=== PATIENT | female | born 1995 | race Caucasian/White ===

== ENCOUNTER 2016-12-30 16:39 | Emergency (ER) | payer MEDICAID, OTHER ==
[~2016-12-30 16:39] MED LIST: Z.0.NO CURRENT MEDS
[2016-12-30 16:47] VITALS: BP 137/65; PULSE 115; RESP 20; TEMP 98.5; O2SAT 98
[2016-12-30 17:15] LABS: BILIRUBIN, URINE NEG (NEG); BLOOD, URINE NEG (NEG); GLUCOSE,URINE NEG (NEG); KETONE, URINE NEG (NEG); NITRITE,URINE NEG (NEG); URINE LEUKOCYTE ESTERASE NEG (NEG)
--- NOTE | 2016-12-30 17:15 | PD ---
HPI Chief Complaint: Related Problem Time Seen by Provider: 17:14 Travel History International Travel<30 days: No Contact w/Intl Traveler<30days: No Traveled to known affect area: No History of Present Illness HPI 21-year-old female patient who is 7 weeks by dates, presents to the ER today for 3 days history of spotting, intermittent mild pelvic cramping, and is concerned because of the spotting. She states that she is barely having any bleeding today but used 3 pads yesterday. She denies any fevers, vomiting, or any other symptoms. Modifying Factors: None Associated Signs & Symptoms: and vaginal spotting, pelvic cramping Risk Factors: None PFSH Past Medical History ?: LMP: OCTOBER : 0 Para: 0 Social History Alcohol Use: Yes (OCC) Tobacco Use: Yes Substance Use: No (DENIES) Allergies-Medications (Allergen,Severity, Reaction): Coded Allergies: No Known Allergies (Verified , 12/30/16) Reported Meds & Prescriptions Reported Meds & Active Scripts Active No Active Prescriptions or Reported Medications Review of Systems Except as stated in HPI: all other systems reviewed are Neg Physical Exam Narrative GENERAL: Well-developed young white female patient currently in mild distress. Awake and oriented 3. SKIN: Focused skin assessment warm/dry. HEAD: Atraumatic. Normocephalic. EYES: Pupils equal and round. No scleral icterus. No injection or drainage. ENT: No nasal bleeding or discharge. Mucous membranes pink and moist. NECK: Trachea midline. No JVD. CARDIOVASCULAR: Regular rate and rhythm. No murmur appreciated. RESPIRATORY: No accessory muscle use. Clear to auscultation. Breath sounds equal bilaterally. GASTROINTESTINAL: Abdomen soft, non-tender, nondistended. Hepatic and splenic margins not palpable. GENITOURINARY: Normal external genitalia without lesions or erythema. Vaginal vault without blood or drainage. No cervical motion tenderness. Uterus nontender. Bilateral adnexa nontender without masses. MUSCULOSKELETAL: No obvious deformities. No clubbing. No cyanosis. No edema. NEUROLOGICAL: Awake and alert. No obvious cranial nerve deficits. Motor grossly within normal limits. Normal speech. PSYCHIATRIC: Appropriate mood and affect; insight and judgment normal. Data Data Last Documented VS Vital Signs Date Time Temp Pulse Resp B/P (MAP) Pulse Ox O2 Delivery O2 Flow Rate FiO2 12/30/16 16:47 98.5 115 20 137/65 (89) 98 Orders Orders Beta Hcg (Quant/Titer) (12/30/16 17:00) Complete Blood Count With Diff (12/30/16 17:00) Basic Metabolic Panel (Bmp) (12/30/16 17:00) Complete Rh (12/30/16 17:00) Urinalysis - C+S If Indicated (12/30/16 17:00) Ed Urine Pregnancytest Poc (12/30/16 16:59) Us Pelvis (Ques Preg/Ectopic) (12/30/16 17:48) Labs Laboratory Tests Test 12/30/16 17:00 12/30/16 17:15 Urine Collection Type CLEAN CATCH Urine Color YELLOW Urine Turbidity CLEAR Urine pH 6.0 Urine Specific [place] 1.025 Urine Protein NEG mg/dL Urine Glucose (UA) NEG mg/dL Urine Ketones NEG mg/dL Urine Occult Blood NEG Urine Nitrite NEG Urine Bilirubin NEG Urine Leukocyte Esterase NEG Urine WBC 0-2 /hpf Urine Squamous Epithelial Cells 0-5 /hpf Urine Amorphous Sediment FEW Microscopic Urinalysis Comment CULT NOT INDICATED Urine Collection Time 17:00 White Blood Count 12.5 TH/MM3 Red Blood Count 4.13 MIL/MM3 Hemoglobin 12.4 GM/DL Hematocrit 36.9 % Mean Corpuscular Volume 89.4 FL Mean Corpuscular Hemoglobin 30.0 PG Mean Corpuscular Hemoglobin Concent 33.6 % Red Cell Distribution Width 11.9 % Platelet Count 268 TH/MM3 Mean Platelet Volume 7.9 FL Neutrophils (%) (Auto) 72.3 % Lymphocytes (%) (Auto) 19.3 % Monocytes (%) (Auto) 6.1 % Eosinophils (%) (Auto) 1.8 % Basophils (%) (Auto) 0.5 % Neutrophils # (Auto) 9.0 TH/MM3 Lymphocytes # (Auto) 2.4 TH/MM3 Monocytes # (Auto) 0.8 TH/MM3 Eosinophils # (Auto) 0.2 TH/MM3 Basophils # (Auto) 0.1 TH/MM3 CBC Comment DIFF FINAL Differential Comment Blood Urea Nitrogen 12 MG/DL Creatinine 0.58 MG/DL Random Glucose 87 MG/DL Calcium Level 8.3 MG/DL Sodium Level 138 MEQ/L Potassium Level 3.2 MEQ/L Chloride Level 106 MEQ/L Carbon Dioxide Level 22.5 MEQ/L Anion Gap 10 MEQ/L Estimat Glomerular Filtration Rate 129 ML/MIN MDM Medical Decision Making Medical Screen Exam Complete: Yes Emergency Medical Condition: Yes Medical Record Reviewed: Yes Interpretation(s) Last 24 hours Impressions Pelvis Ultrasound 12/30/16 1748 Signed Impressions: Service Date/Time: , December 30, 2016 18:06 - CONCLUSION: 9 week IUP. Possible small subchorionic hemorrhage. Michael Dominguez MD Differential Diagnosis , vaginal spotting: Threatened AB versus UTI versus ectopic versus dysmenorrhea Narrative Course Ultrasound shows 9 week IUP with cardiac activity identified. At this point, my plan would be to release the patient would follow-up to [facility] in 2 days. Return for any worsening in bleeding, pain, and as needed. The plan has discussed with her and she states understanding. Diagnosis Primary Impression: Threatened Scripts No Active Prescriptions or Reported Meds Disposition: 01 DISCHARGE HOME Condition: Stable Xiomy Juan MD Dec 30, 2016 17:15
[2016-12-30 17:30] LABS: BASOPHIL # 0.1 TH/MM3 (0-0.2); BASOPHIL % 0.5 % (0.0-2.0); EOSINOPHIL # 0.2 TH/MM3 (0-0.4); EOSINOPHIL % 1.8 % (0.0-4.0); HEMATOCRIT 36.9 % (35.0-46.0); HEMOGLOBIN 12.4 GM/DL (11.6-15.3); LYMPH % 19.3 % (9.0-44.0); LYMPHOCYTE # 2.4 TH/MM3 (1.0-4.8); MEAN CELL VOLUME 89.4 FL (80.0-100.0); MEAN CORPUSCULAR HGB CONC 33.6 % (32.0-36.0); MEAN PLATELET VOLUME 7.9 FL (7.0-11.0); MONO % 6.1 % (0.0-8.0); MONOCYTE # 0.8 TH/MM3 (0-0.9); NEUT % 72.3 % (16.0-70.0); PLATELET COUNT 268 TH/MM3 (150-450); RED BLOOD COUNT 4.13 MIL/MM3 (4.00-5.30); RED CELL DISTRIBUTION WIDTH 11.9 % (11.6-17.2); WHITE BLOOD COUNT 12.5 TH/MM3 (4.0-11.0)
[2016-12-30 17:37] LABS: URINE COLOR YELLOW (YELLW/STRAW)
[2016-12-30 17:38] LABS: AMORPHOUS SEDIMENT, URINE FEW; SQUAMOUS EPITHELIAL CELL URINE 0-5 /hpf (0-5); WBC, URINE 0-2 /hpf (0-5)
--- NOTE | 2016-12-30 18:26 | RADRPT ---
EXAM DATE/TIME: 12/30/2016 18:06 [place] COMPARISON: No previous studies available for comparison. INDICATIONS : Vaginal spotting and cramping. LAB(S): Beta-hCG: MEDICAL HISTORY : . SURGICAL HISTORY : None. ENCOUNTER: Initial ACUITY: 1 day PAIN SCORE: 3/10 LOCATION: Bilateral pelvis MEASUREMENTS: UTERUS: 11.0 x 7.9 x 8.8 cm ENDOMETRIAL STRIPE: 4 mm RIGHT OVARY: 3.4 x 1.5 x 1.5 cm LEFT OVARY: 2.0 x 1.8 x 1.5 cm FREE FLUID: No CROWN RUMP LENGTH: 2.6 cm = 9 WKS 3 DAYS FHR: 171 BPM FINDINGS: UTERUS: Intrauterine gestation identified with cardiac activity noted. [place]-rump length is 26.4 mm yie lding estimated gestational age of 9 weeks 3 days. There is a small hypoechoic area adjacent to the g estational sac in the fundus region which may be a small area of subchorionic hemorrhage. RIGHT OVARY: Ovary contains no mass or significant cystic lesion. LEFT OVARY: Ovary contains no mass or significant cystic lesion. MISCELLANEOUS: No free fluid. CONCLUSION: 9 week IUP. Possible small subchorionic hemorrhage. Michael Dominguez MD on December 30, 2016 at 18:23 Board Certified Radiologist. This report was verified electronically.
[2016-12-30 18:35] LABS: CALCIUM 8.3 MG/DL (8.5-10.1)
[2016-12-30 18:36] LABS: BICARBONATE 22.5 MEQ/L (21.0-32.0)
[2016-12-30 18:39] LABS: CREATININE 0.58 MG/DL (0.50-1.00)
[2016-12-30 18:45] VITALS: BP 117/69; PULSE 90; RESP 20; O2SAT 98
== END 2016-12-30 19:14 | disposition home or self-care (01) ==
LOC: PHED 16:39
DX: O20.0 Threatened abortion (principal); Z3A.09 9 weeks gestation of pregnancy
CPT/HCPCS: 76700; 80048; 81001; 84702; 84703; 85025; 86901; 99284

== ENCOUNTER 2017-07-21 12:21 | Emergency (ER) | END 2017-07-21 13:14 | disposition home or self-care (01) | DX: O26.893 Other specified pregnancy related conditions, third trimester (principal); Z3A.38 38 weeks gestation of pregnancy ==

== ENCOUNTER → 2017-07-21 | Outpatient (CLI) | DX: O36.8130 Decreased fetal movements, third trimester, not applicable or unspecified (principal) ==

== ENCOUNTER 2017-07-22 08:28 | Inpatient (IN) | payer MEDICAID ==
[2017-07-22] VITALS (12 sets, daily range): BP systolic 116–135; BP diastolic 69–87; PULSE 93–108; RESP 17–18; TEMP 97.6–98.5
[~2017-07-22] VITALS: Ht 170.2 cm; Wt 80.3 kg
[~2017-07-22 08:28] MED LIST changes: +ACET-822; +PREN1CAP30 PO; +PREN1TAB20 PO; -Z.0.NO CURRENT MEDS
--- NOTE | 2017-07-22 09:38 | PD ---
HPI Chief Complaint Low CRYS Date Seen: July 22, 2017 Travel History International Travel<30 Days: No Contact w/Intl Traveler<30Days: No Known Affected Area: No History of Present Illness HPI The patient is a very pleasant 22-year-old at 38/5 weeks gestation being evaluated in OB triage after her repeat US at [facility] this morning was reported to have low CRYS. The patient was evaluated here yesterday after being seen her office visit with complaints of decreased movement. Her BPP yesterday was 12/14 with an CRYS of 6.4 cm. She had reported yesterday questionable leakage of fluid for about the past week, her initial yesterday was negative. She continues to endorse leakage of fluid. She endorses feeling very irregular contractions. Reports her movements are better. She otherwise does not have any specific complaints or concerns. Para: 0 : 1 History Past Medical History Narrative Medical GERD Obstetric History Obstetric History Past Surgical History Narrative Surgical [place] teeth extraction Family History Narrative Family History Mother with sz/CVAs Social History Alcohol Use: No Tobacco Use: No Substance Abuse: No Allergies-Medications (Allergen,Severity, Reaction): Coded Allergies: No Known Allergies (Verified Adverse Reaction, Unknown, 07/22/17) Home Meds Active Scripts W/O Vit A W/ Fe Carbonyl (Citranatal Rx) 27-1 Mg Tab, 1 TAB PO DAILY for Nutritional Supplement, #30 TAB 4 Refills Prov:Yuliana Menchaca CNM [facility] 03/15/17 Without A W/Fe Fum-Fe (Provida Dha 16-16-1.25-110 mg) 32 Mg Iron-1.25 Mg-110 Mg Cap, 1 TAB PO DAILY, #30 BOTTLE 11 Refills Prov:Yola Avelar CASING MACHINE OPERATOR 01/19/17 Reported Medications Acetaminophen (Tylenol Extra Strength) 500 Mg Tablet 01/19/17 Review of Systems Except as stated in HPI: all other systems reviewed are Neg Physical Exam Narrative GENERAL: Well-nourished, well-developed patient. SKIN: Warm and dry. HEAD: Normocephalic and atraumatic. EYES: No scleral icterus. No injection or drainage. ENT: No nasal drainage noted. Mucous membranes pink. Airway patent. NECK: Supple, trachea midline. No JVD. CARDIOVASCULAR: Regular rate and rhythm without murmurs, gallops, or rubs. RESPIRATORY: Breath sounds equal bilaterally. No accessory muscle use. ABDOMEN/GI: Abdomen soft, non-tender, bowel sounds present, no rebound, no guarding Gravid to 38 weeks size GENITOURINARY: External Genitalia: intact and normal in appearance Cervix: posterior Dilatation: 1-2cm Effacement: 60% Station: -2 Presentation: [-] Membranes: [-] Uterine Contractions: Irregular FHT's: Category: I Baseline: 140s Reactive: +accels Variability: moderate Decels: none noted EXTREMITIES: No cyanosis or edema. BACK: Nontender without obvious deformity. No CVA tenderness. NEUROLOGICAL: Awake and alert. Motor and sensory grossly within normal limits. Normal speech. Data Data Vital Signs Reviewed: Yes [facility] Medical Record Reviewed: Yes Plan 22 year old at 38/5 weeks gestation evaluated due to reported low CRYS. - Admit to L&D for IOL - Cervix: 1-2/60/-2, posterior - Category I tracing - Irregular contractions - Will plan for IOL with cervidil 10 mg intravaginally for cervical ripening - GBS negative - Patient desiring epidural once appropriate Fritz Albrecht Dr., MD R2 July 22, 2017 09:38
[2017-07-22] MEDS ORDERED: SODIUM CHLORIDE 0.9% FLUSH 10 ML FLUSH IV FLUSH PRN (10:00)
[2017-07-22] MEDS ORDERED: CITRIC ACID-SODIUM CITRATE LIQ 30 ML UDC PO SCH (10:00)
[2017-07-22] MEDS ORDERED: OXYTOCIN 30 UNITS-500ML PREMIX 500 ML IV ONE (10:00)
[2017-07-22] MEDS ORDERED: LIDOCAINE HCL 1% 50 ML VIAL INFIL PRN (10:00)
[2017-07-22] MEDS: SODIUM CHLORIDE 0.9% FLUSH 10 ML FLUSH IV FLUSH SCH ×2 (10:00→21:00)
[2017-07-22] MEDS: LACTATED RINGER'S 1000 ML INJ 1,000 ML IV SCH ×2 (10:00→21:47)
[2017-07-22] MEDS ORDERED: MINERAL OIL 10 ML VIAL TOPICAL PRN (10:00)
[2017-07-22] MEDS ORDERED: DINOPROSTONE 10 MG VAG INSERT VAGINAL ONE (10:00)
--- NOTE | 2017-07-22 10:18 | HHI.HP ---
History & Physical H&P HPI HPI Chief Complaint Low CRYS Date Seen: July 22, 2017 Travel History International Travel<30 Days: No Contact w/Intl Traveler<30Days: No Known Affected Area: No History of Present Illness HPI The patient is a very pleasant 22-year-old at 38/5 weeks gestation being evaluated in OB triage after her repeat US at [facility] this morning was reported to have low CRYS. The patient was evaluated here yesterday after being seen her office visit with complaints of decreased movement. Her BPP yesterday was 10/10 with an CRYS of 6.4 cm. She had reported yesterday questionable leakage of fluid for about the past week, her initial yesterday was negative. She continues to endorse leakage of fluid. She endorses feeling very irregular contractions. Reports her movements are better. She otherwise does not have any specific complaints or concerns. Para: 0 : 1 History (Limited) History Past Medical History Narrative Medical GERD Obstetric History Obstetric History Past Surgical History Narrative Surgical [place] teeth extraction Family History Narrative Family History Mother with sz/CVAs Social History Alcohol Use: No Tobacco Use: No Substance Abuse: No Allergies-Medications Allergies-Medications (Allergen,Severity, Reaction): Coded Allergies: No Known Allergies (Verified Adverse Reaction, Unknown, 07/22/17) Home Meds Active Scripts W/O Vit A W/ Fe Carbonyl (Citranatal Rx) 27-1 Mg Tab, 1 TAB PO DAILY for Nutritional Supplement, #30 TAB 4 Refills Prov:Yuliana Menchaca CNM [facility] 03/15/17 Without A W/Fe Fum-Fe (Provida Dha 16-16-1.25-110 mg) 32 Mg Iron-1.25 Mg-110 Mg Cap, 1 TAB PO DAILY, #30 BOTTLE 11 Refills Prov:Yola Avelar ASSISTANT GOLF COURSE SUPERINTENDENT 01/19/17 Reported Medications Acetaminophen (Tylenol Extra Strength) 500 Mg Tablet 01/19/17 ROS Review of Systems Except as stated in HPI: all other systems reviewed are Neg Physical Exam Physical Exam Narrative GENERAL: Well-nourished, well-developed patient. SKIN: Warm and dry. HEAD: Normocephalic and atraumatic. EYES: No scleral icterus. No injection or drainage. ENT: No nasal drainage noted. Mucous membranes pink. Airway patent. NECK: Supple, trachea midline. No JVD. CARDIOVASCULAR: Regular rate and rhythm without murmurs, gallops, or rubs. RESPIRATORY: Breath sounds equal bilaterally. No accessory muscle use. ABDOMEN/GI: Abdomen soft, non-tender, bowel sounds present, no rebound, no guarding Gravid to 38 weeks size GENITOURINARY: External Genitalia: intact and normal in appearance Cervix: posterior Dilatation: 1-2cm Effacement: 60% Station: -2 Presentation: [-] Membranes: [-] Uterine Contractions: Irregular FHT's: Category: I Baseline: 140s Reactive: +accels Variability: moderate Decels: none noted EXTREMITIES: No cyanosis or edema. BACK: Nontender without obvious deformity. No CVA tenderness. NEUROLOGICAL: Awake and alert. Motor and sensory grossly within normal limits. Normal speech. Data Data Data Vital Signs Reviewed: Yes MDM MDM Medical Record Reviewed: Yes Plan 22 year old at 38/5 weeks gestation evaluated due to reported low CRYS. - Admit to L&D for IOL - Cervix: 1-2/60/-2, posterior - Category I tracing - Irregular contractions - Will plan for IOL with cervidil 10 mg intravaginally for cervical ripening - GBS negative - Patient desiring epidural once appropriate dw Fritz Sheikh MD R2 July 22, 2017 10:18
[2017-07-22 10:46] LABS: AUTOMATED NEUTROPHIL # 10.6 TH/MM3 (1.8-7.7); BASOPHIL # 0.1 TH/MM3 (0-0.2); BASOPHIL % 0.4 % (0.0-2.0); EOSINOPHIL # 0.2 TH/MM3 (0-0.4); EOSINOPHIL % 1.2 % (0.0-4.0); HEMATOCRIT 36.1 % (35.0-46.0); HEMOGLOBIN 12.2 GM/DL (11.6-15.3); LYMPHOCYTE # 1.6 TH/MM3 (1.0-4.8); MEAN CELL VOLUME 88.3 FL (80.0-100.0); MEAN CORPUSCULAR HEMOGLOBIN 29.9 PG (27.0-34.0); MEAN CORPUSCULAR HGB CONC 33.9 % (32.0-36.0); MEAN PLATELET VOLUME 7.2 FL (7.0-11.0); MONO % 4.8 % (0.0-8.0); MONOCYTE # 0.6 TH/MM3 (0-0.9); NEUT % 81.6 % (16.0-70.0); PLATELET COUNT 324 TH/MM3 (150-450); RED BLOOD COUNT 4.09 MIL/MM3 (4.00-5.30); RED CELL DISTRIBUTION WIDTH 13.7 % (11.6-17.2)
[2017-07-22 10:52] LABS: BACTERIA, URINE RARE /hpf; BILIRUBIN, URINE NEG (NEG); BLOOD, URINE NEG (NEG); GLUCOSE,URINE NEG (NEG); KETONE, URINE TRACE mg/dL (NEG); MUCUS URINE FEW /lpf (OCC); NITRITE,URINE NEG (NEG); SQUAMOUS EPITHELIAL CELL URINE 1 /hpf (0-5); URINE COLOR LIGHT-YELLOW (YELLW/STRAW); URINE LEUKOCYTE ESTERASE NEG (NEG)
[2017-07-22] MEDS ORDERED: LACTATED RINGER'S 1000 ML INJ 1,000 ML IV PRN (13:22)
[2017-07-22] MEDS ORDERED: SODIUM CHLORID 0.9% 500 ML INJ 500 ML IV PRN (13:30)
[2017-07-22] MEDS ORDERED: SODIUM CHLOR 0.9% 1000 ML INJ 1,000 ML IV PRN (13:42)
--- NOTE | 2017-07-22 23:38 | PD.LABORPN ---
Subjective Subjective Minimal contraction pain. Cervidil is due for removal around 2300. Patient presently on clear liquids. Objective Vital Signs Vital Signs Date Time Temp Pulse Resp B/P (MAP) Pulse Ox O2 Delivery O2 Flow Rate FiO2 07/22/17 23:19 103 116/69 (85) 07/22/17 23:19 98.1 18 07/22/17 19:12 97.6 18 07/22/17 19:11 93 123/87 (99) 07/22/17 18:18 106 122/70 (87) 07/22/17 18:17 18 07/22/17 17:00 18 07/22/17 16:00 18 07/22/17 16:00 97.9 Objective Pelvic Exam: Cervix: [1-2-] Dilatation: [-70] Effacement: [-] Station: [-3-] Presentation: [-] Membranes: [intact or ruptured] Uterine Contractions: [-] irregular q10 min FHT's: Category: [-] 1 Baseline: [-] 140 Reactive: [-] mod Variability: [-] mod Decels: [-] absent Assessment/Plan Problem List: (1) 39 weeks gestation of ICD Codes: Z3A.39 - 39 weeks gestation of (2) Oligohydramnios in rust in third trimester ICD Codes: O41.03X0 - Oligohydramnios, third trimester, not applicable or unspecified Assessment and Plan Plan regular diet at this time with clear liquids after placement of cytotec at 0200 After adequate ripening discussed either AROM if significant dilation vs pitocin induction of labor Iris Barragan MD July 22, 2017 23:38
[2017-07-23] VITALS (92 sets, daily range): BP systolic 98–132; BP diastolic 49–86; PULSE 78–114; RESP 15–20; TEMP 98–98.4; O2SAT 96–99
[2017-07-23] MEDS ORDERED: MISOPROSTOL 100 MCG TAB VAGINAL PRN (00:45)
[2017-07-23] MEDS: MISOPROSTOL 25 MCG TAB VAGINAL PRN ×3 (02:07→12:56)
[2017-07-23] MEDS: LACTATED RINGER'S 1000 ML INJ 1,000 ML IV SCH ×3 (06:15→17:43)
--- NOTE | 2017-07-23 08:52 | PD.LABORPN ---
Subjective Subjective Patient resting comfortably in bed. She denies any current pain or pressure. She otherwise does not have specific complaints. Her only questions are of a time frame regarding her induction of labor. Objective Vital Signs Vital Signs Date Time Temp Pulse Resp B/P (MAP) Pulse Ox O2 Delivery O2 Flow Rate FiO2 07/23/17 06:18 103 120/84 (96) 07/23/17 06:17 18 07/23/17 04:06 98.2 07/23/17 04:05 94 127/77 (94) 07/23/17 04:04 18 Objective Pelvic Exam (from 06:16): Cervix: posterior Dilatation: 1-2 Effacement: 60 Station: -3 Presentation: [-] Membranes: [-] Uterine Contractions: q2-3 minutes FHT's: Category: I Baseline: 130s bpm Reactive: +accels Variability: moderate Decels: none noted Assessment/Plan Problem List: (1) 39 weeks gestation of ICD Codes: Z3A.39 - 39 weeks gestation of (2) Oligohydramnios in rust in third trimester ICD Codes: O41.03X0 - Oligohydramnios, third trimester, not applicable or unspecified Assessment and Plan 22 year old at 38/6 weeks gestation admitted to L&D for IOL secondary to oligohydramnios. - Cervix earlier this AM at 06:00: 1-2/60/-2, posterior - Category I tracing - Contractions q2-3 minutes on tocometer - Cervidil 10 mg intravaginally placed for cervical ripening on 07/22 10:58, cervix noted to be without change following Cervidil for 12 hours - Patient started on cytotec 25 mcg at 02:00 today followed by 2nd dose cytotec 25 mcg at 06:00 - Further plan to follow per OB hospitalist based on repeat cervical exam - Patient is GBS negative - Patient desiring epidural if appropriate if progressing to active labor Fritz Contreras MD R2 July 23, 2017 08:51
[2017-07-23] MEDS ORDERED: ONDANSETRON ODT 4 MG TAB PO ONE (09:30)
[2017-07-23] MEDS ORDERED: fentaNYL 2MCG-BUPIV 0.125% INJ 100 ML ONE (15:47)
[2017-07-23] MEDS ORDERED: NO SYSTEM NARCOTICS PRN (16:45)
[2017-07-23] MEDS ORDERED: DO NOT ADMINISTER ANTICOAGULANTS PRN (16:45)
[2017-07-23] MEDS ORDERED: ePHEDrine/NS 25 MG/5 ML SYRINGE IV PUSH PRN (16:45)
[2017-07-23] MEDS ORDERED: fentaNYL 2MCG-BUPIV 0.125% 100 ML EPIDURAL PRN (16:45)
[2017-07-23] MEDS: SODIUM CHLORIDE 0.9% FLUSH 10 ML FLUSH IV FLUSH SCH (18:54)
[2017-07-23] MEDS ORDERED: LIDOCAINE 2%/EPINEPHrine PF 1:200,000 20ML SDV ONE (22:36)
[2017-07-23] MEDS ORDERED: BUPIVACAINE HCL PF 0.25% 10 ML VIAL ONE (22:36)
[2017-07-24] VITALS (14 sets, daily range): BP systolic 101–135; BP diastolic 41–75; PULSE 100–117; RESP 17; TEMP 98.6
[2017-07-24] MEDS ORDERED: OXYTOCIN 30 UNITS-500ML PREMIX 500 ML ONE (02:43)
--- NOTE | 2017-07-24 03:11 | PD.OB.DELI ---
Anesthesia: Epidural Episiotomy: None Vaginal Delivery: Normal Presentation: Occiput anterior Nuchal Cord: None Delayed cord clamping (45 sec): Yes Infant: Female Delivery date: July 24, 2017 Delivery time: 02:56 One Minute : 8 Five Minute : 8, 9 Weight: 3670 gm Placenta: Spontaneous delivery, Intact Laceration: Perineal laceration, 2 deg Repair: Chromic running Estimated blood loss: 200 cc Madi Kendrick II, MD July 24, 2017 03:11
[2017-07-24] MEDS ORDERED: OXYTOCIN 30 UNITS-500ML PREMIX 500 ML IV SCH (03:15)
[2017-07-24] MEDS ORDERED: DOCUSATE SODIUM 50 MG/SENNA 8.6 MG TAB PO PRN (03:15)
[2017-07-24] MEDS ORDERED: ACETAMINOPHEN 325 MG TAB PO PRN (03:15)
[2017-07-24] MEDS ORDERED: oxyCODONE/ACETAMINOPHEN 5 MG/325 MG TAB PO PRN (03:15)
[2017-07-24] MEDS ORDERED: SODIUM CHLORIDE 0.9% FLUSH 10 ML FLUSH IV FLUSH PRN (03:15)
[2017-07-24] MEDS ORDERED: WITCH HAZEL 50%/GLYCERIN 12.5% 40 PAD JAR TOPICAL PRN (03:15)
[2017-07-24] MEDS ORDERED: ONDANSETRON ODT 4 MG TAB PO PRN (03:15)
[2017-07-24] MEDS ORDERED: BENZOCAINE 20% TOPICAL SPRAY 60 ML CAN TOPICAL PRN (03:15)
[2017-07-24] MEDS ORDERED: ALUMINUM/MAGNESIUM/SIMETH 30 ML CUP PO PRN (03:15)
[2017-07-24] MEDS ORDERED: ZOLPIDEM TARTRATE 5 MG TAB PO PRN (03:15)
[2017-07-24] MEDS: IBUPROFEN 800 MG TAB PO PRN ×2 (03:46→13:24)
[2017-07-24] MEDS ORDERED: SODIUM CHLORIDE 0.9% FLUSH 10 ML FLUSH IV FLUSH SCH (09:00)
[2017-07-24] MEDS ORDERED: DIPHTH/TETANUS/ACEL PERTUSSIS (BOOSTER) 0.5 ML VIAL/PFS IM ONE (16:00)
[2017-07-24] MEDS ORDERED: MEASLES, MUMPS, RUBELLA VACCINE 0.5 ML VIAL SQ ONE (16:00)
[2017-07-25] MEDS: IBUPROFEN 800 MG TAB PO PRN (06:08)
--- NOTE | 2017-07-25 09:03 | HHI.OB ---
Subjective Post Day: 1 Remarks Patient seen and examined this morning. Patient was tachycardic overnight. day #1. Pain is well-controlled. Decreased lochia. Denies dysuria. No breast tenderness. She is feeding the baby via breast. Appetite good. No nausea or vomiting. Denies flatus. No bowel movement yet. Ambulating well. Denies calf pain, chest pain, palpitations, dizziness, shortness of breath, or cough. She otherwise has no other complaints or concerns this morning. Objective Objective Remarks GENERAL: Well-nourished, well-developed patient. CARDIOVASCULAR: Regular rate and rhythm without murmurs, gallops, or rubs. RESPIRATORY: Breath sounds equal bilaterally. No accessory muscle use. ABDOMEN/GI: Abdomen soft, non-tender. Fundus: Firm, non-tender at umbilicus. GENITOURINARY: Light to moderate bleeding. EXTREMITIES: No cyanosis or edema, non-tender, without signs of DVT. Medications and IVs Current Medications Medications (Trade) Dose Ordered Sig/Deny Route Start Time Stop Time Status Last Admin (NS Flush) 2 ml BID IV FLUSH 07/24/17 09:00 (NS Flush) 2 ml UNSCH PRN IV FLUSH 07/24/17 03:15 (Tylenol) 650 mg Q4H PRN PO 07/24/17 03:15 (Motrin) 800 mg Q8H PRN PO 07/24/17 03:15 07/25/17 06:08 (Percocet 5-325 Mg) 1 tab Q4H PRN PO 07/24/17 03:15 07/24/17 05:16 (Americaine 20% Top Spr) 1 spray Q4H PRN TOPICAL 07/24/17 03:15 07/24/17 03:47 (Tucks Pads) 1 applic QID PRN TOPICAL 07/24/17 03:15 (Hansa-Colace) 2 tab Q12H PRN PO 07/24/17 03:15 (Ambien) 5 mg HS PRN PO 07/24/17 03:15 (Mag-Al Plus Susp Liq) 15 ml Q8H PRN PO 07/24/17 03:15 (Zofran Odt) 4 mg Q6H PRN PO 07/24/17 03:15 Assessment/Plan Problem List: (1) 39 weeks gestation of ICD Codes: Z3A.39 - 39 weeks gestation of Plan: 22 year old PPD#1. 1. Care -Continue to monitor vital signs -Follow-up repeat H&H - Encouraged OOB, as tolerated - Motrin prn pain - Advised pelvic rest x 6 weeks -Breast feeding - Contraception: Patient reports she will discuss contraception with her doctor as an outpatient. - Will f/u with OB provider in 6 weeks (2) Oligohydramnios in rust in third trimester ICD Codes: O41.03X0 - Oligohydramnios, third trimester, not applicable or unspecified Status: Resolved Discharge Planning Anticipate discharge tomorrow Roselia Carmona MD, R1 July 25, 2017 09:03
[2017-07-25 10:47] LABS: AUTOMATED NEUTROPHIL # 11.8 TH/MM3 (1.8-7.7); BASOPHIL # 0.1 TH/MM3 (0-0.2); BASOPHIL % 0.6 % (0.0-2.0); EOSINOPHIL # 0.2 TH/MM3 (0-0.4); EOSINOPHIL % 1.5 % (0.0-4.0); HEMATOCRIT 34.1 % (35.0-46.0); HEMOGLOBIN 11.3 GM/DL (11.6-15.3); LYMPH % 11.6 % (9.0-44.0); LYMPHOCYTE # 1.7 TH/MM3 (1.0-4.8); MEAN CELL VOLUME 88.4 FL (80.0-100.0); MEAN CORPUSCULAR HEMOGLOBIN 29.3 PG (27.0-34.0); MEAN CORPUSCULAR HGB CONC 33.1 % (32.0-36.0); MONO % 5.3 % (0.0-8.0); MONOCYTE # 0.8 TH/MM3 (0-0.9); PLATELET COUNT 279 TH/MM3 (150-450); RED BLOOD COUNT 3.85 MIL/MM3 (4.00-5.30); RED CELL DISTRIBUTION WIDTH 13.8 % (11.6-17.2); WHITE BLOOD COUNT 14.6 TH/MM3 (4.0-11.0)
[2017-07-25] MEDS ORDERED: IBUP1TAB7 PO (11:45)
--- NOTE | 2017-07-25 12:01 | HHI.DCPOC ---
Discharge Care Plan Diagnosis: (1) 39 weeks gestation of (2) Oligohydramnios in rust in third trimester Goals to Promote Your Health * To prevent worsening of your condition and complications * To maintain your health at the optimal level Directions to Meet Your Goals Take your medications as prescribed Follow your dietary instruction Follow activity as directed Keep your appointments as scheduled Take your immunizations and boosters as scheduled If your symptoms worsen call your PCP, if no PCP go to Urgent Care Center or Emergency Room Smoking is Dangerous to Your Health. Avoid second hand smoke Call the 24-hour hour crisis hotline for domestic abuse at Roselia Carmona MD, R1 July 25, 2017 12:01
== END 2017-07-25 13:45 | disposition home or self-care (01) | DRG 775 ==
LOC: HOBED 08:28 → H2EA 10:00 → H1EA 07-24 05:09
PROVIDERS: ADMIT Obstetrics & Gynecology; ATTEND Obstetrics & Gynecology
PROC: 3E0P7VZ Introduction of Hormone into Female Reproductive, Via Natural or Artificial Opening (ICD-10-PCS; 2017-07-22)
PROC: 10E0XZZ Delivery of Products of Conception, External Approach (ICD-10-PCS; principal; 2017-07-24)
PROC: 0KQM0ZZ Repair Perineum Muscle, Open Approach (ICD-10-PCS; 2017-07-24)
DX: O41.03X0 Oligohydramnios, third trimester, not applicable or unspecified (principal); K21.9 Gastro-esophageal reflux disease without esophagitis; O36.8130 Decreased fetal movements, third trimester, not applicable or unspecified; O99.62 Diseases of the digestive system complicating childbirth; R00.0 Tachycardia, unspecified; Z3A.38 38 weeks gestation of pregnancy; Z37.0 Single live birth
CPT/HCPCS: 59025; 76815; 76816; 76818; 80307; 81001; 85025; 86900; 86901; G0481; J2590; J3010; J7120

== ENCOUNTER → 2017-07-22 | Outpatient (CLI) | DX: O41.03X0 Oligohydramnios, third trimester, not applicable or unspecified (principal) ==